=== PATIENT | male | born 1955 | race Caucasian/White ===

== ENCOUNTER 2020-02-04 08:08 | Day surgery (SDC) | payer BC ==
[~2020-02-04] VITALS: Ht 175.3 cm; Wt 118.8 kg
[2020-02-04] MEDS ORDERED: FLOMAX 0.40.4 MG/CAP PO (08:43)
[2020-02-04] MEDS ORDERED: COZAAR100 MG PO (08:43)
[2020-02-04] MEDS ORDERED: PROSCAR 5MG5 MG PO (08:43)
[2020-02-04 08:49] VITALS: BP 126/92; PULSE 72; TEMP 97.8
[2020-02-04 09:40] VITALS: BP 108/68; PULSE 77; TEMP 97.9
--- NOTE | 2020-02-04 09:40 | NUR ---
Patient was brought back to [facility] bay [address] via cart. Ambulated to recliner without difficulty. Placed on monitors, vital signs stable. Patient denies pain or nausea. Requesting muffin and juice. will pick patient up at front door. Warm blanket provided, call celis within reach. Will continue to monitor.
[2020-02-04 09:55] VITALS: BP 122/75; PULSE 70
--- NOTE | 2020-02-04 09:55 | NUR ---
MD at bedside to discuss results with patient. Will continue to monitor.
[2020-02-04 10:10] VITALS: BP 126/76; PULSE 69
--- NOTE | 2020-02-04 10:10 | NUR ---
Vital signs stable. Patient states he feels ready to go home. IV removed, intact. Patient to get dressed at this time. Will continue to monitor.
--- NOTE | 2020-02-04 10:18 | NUR ---
Discharge instructions reviewed with patient. Verbalized understanding. Office number provided. Brought down to lobby via wheel chair. at front door to drive patient home. All belongings in hand.
== END 2020-02-04 10:18 | disposition home or self-care (01) ==
LOC: SDCO 08:08
DX: Z12.11 Encounter for screening for malignant neoplasm of colon (principal); D12.5 Benign neoplasm of sigmoid colon; K57.30 Diverticulosis of large intestine without perforation or abscess without bleeding; E78.00 Pure hypercholesterolemia, unspecified; Z85.46 Personal history of malignant neoplasm of prostate; Z20.828 Contact with and (suspected) exposure to other viral communicable diseases; G47.33 Obstructive sleep apnea (adult) (pediatric)
CPT/HCPCS: J2704; J7120